=== PATIENT | male | born 1990 | race Caucasian/White ===

== ENCOUNTER 2016-11-07 13:41 | Outpatient (CLI) | payer OTHER | END 2016-11-07 13:42 | disposition home or self-care (01) | DX: G47.30 Sleep apnea, unspecified (principal); G47.10 Hypersomnia, unspecified; G47.8 Other sleep disorders; R06.83 Snoring; G47.21 Circadian rhythm sleep disorder, delayed sleep phase type; G47.00 Insomnia, unspecified ==

== ENCOUNTER 2016-12-01 21:25 | Outpatient (CLI) | payer OTHER | END 2016-12-01 21:26 | disposition home or self-care (01) | DX: G47.30 Sleep apnea, unspecified (principal); G47.10 Hypersomnia, unspecified; G47.8 Other sleep disorders; R06.83 Snoring; G47.21 Circadian rhythm sleep disorder, delayed sleep phase type; G47.00 Insomnia, unspecified ==

== ENCOUNTER 2016-12-26 14:31 | Outpatient (CLI) | payer OTHER | END 2016-12-26 14:32 | disposition home or self-care (01) | DX: G47.30 Sleep apnea, unspecified (principal); R06.83 Snoring; G47.10 Hypersomnia, unspecified; G47.00 Insomnia, unspecified ==

== ENCOUNTER 2016-12-28 08:12 | Emergency (ER) | payer OTHER ==
[2016-12-28] MEDS ORDERED: DEXAMETHASONE 10 MG/ML VIAL PO STA (09:01)
[2016-12-28] MEDS ORDERED: CHERRY SYRUP 10 ML UDC PO ONE (09:01)
[2016-12-28] MEDS ORDERED: DEXAMETHASONE 10 MG/ML VIAL ONE (09:01)
== END 2016-12-28 09:19 | disposition home or self-care (01) ==
DX: E86.0 Dehydration (principal); H66.003 Acute suppurative otitis media without spontaneous rupture of ear drum, bilateral; F32.9 Major depressive disorder, single episode, unspecified
CPT/HCPCS: 99283; A9270

== ENCOUNTER 2020-05-11 02:59 | Outpatient (CLI) | payer OTHER | END 2020-05-11 03:00 | disposition critical access hospital (66) | LOC: EMS 02:59 | PROVIDERS: ATTEND Surgery | DX: N50.819 Testicular pain, unspecified (principal) | CPT/HCPCS: A0425; A0429 ==

== ENCOUNTER 2020-05-11 03:16 | Emergency (ER) | payer OTHER ==
--- NOTE | 2020-05-11 04:07 | ED Physician Documentation ---
PD HPI MALE - Stated complaint Stated Complaint: GROIN PAIN - Chief complaint Chief Complaint: General - History obtained from History obtained from: Patient - History of Present Illness Timing - onset: How many minutes ago (approximately 30 minutes [employer]) Timing - details: Abrupt onset Pain level now: 8 Associated symptoms: Testiclar pain. No: Dysuria, Discharge, Genital sore / lesion, Scrotal swelling, Abdominal pain, Back pain PD HPI MALE CONTRIB FACTORS: Not sexually active Similar symptoms before: Has not had sx before Recently seen: Not recently seen - Additional information Additional information: BIBA. c/o woken from sleep by sudden onset, atraumatic right testicular pain. He is not sexually active. denies h/o similar symptoms. pain is worse with palpation, movement. denies dysuria, discharge. Review of Systems Constitutional: denies: Fever, Chills, Sweats GI: reports: Reviewed and negative : reports: Testicular pain. denies: Dysuria, Frequency, Hematuria, Discharge Skin: denies: Rash, Lesions Musculoskeletal: denies: Back pain PD PAST MEDICAL HISTORY - Past Medical History Past Medical History: Yes Psych: Depression, Post traumatic stress disorder - Past Surgical History Past Surgical History: No - Present Medications Home Medications: Ambulatory Orders Medication Instructions Recorded Confirmed Prazosin HCl 10 mg PO DAILY 12/28/16 05/11/20 Levofloxacin [Levaquin] 500 mg PO DAILY #9 tablet 05/11/20 Oxycodone HCl/Acetaminophen 1 - 2 each PO Q6H PRN #14 tablet 05/11/20 [Percocet 5-325 mg Tablet] Sertraline HCl 100 mg PO DAILY 05/11/20 05/11/20 - Allergies Allergies/Adverse Reactions: Allergies Allergy/AdvReac Type Severity Reaction Status Date / Time No Known Drug Allergies Allergy Verified 12/28/16 08:26 - Social History Does the pt smoke?: No Smoking Status: Never smoker Does the pt drink ETOH?: No - Immunizations Immunizations are current?: Yes PD ED PE NORMAL - Vitals Vital signs reviewed: Yes - General General: Alert and oriented X 3, Well developed/nourished, Other (appears to be in mild painful distress, waxing and waning during H+P) - Abdomen Abdomen: Soft, Non tender - Back Back: No CVA TTP - Derm Derm: Normal color, Warm and dry, No rash PD ED PE EXPANDED - Male Male : Circumcised, Testes descended adalid, Normal lie/cremastaric, Tenderness (right testicle tenderness at inferior pole). No: Discharge Results - Vitals Vitals: Vital Signs - 24 hr 05/11/20 05/11/20 05/11/20 03:15 05:11 07:12 Temperature 36.0 C L Heart Rate 98 82 84 Respiratory 20 18 16 Rate Blood Pressure 164/109 H 155/102 H 144/88 H O2 Saturation 97 97 98 Oxygen O2 Source Room air - Labs Labs: Laboratory Tests 05/11/20 05/11/20 05/11/20 04:35 04:35 07:00 WBC 10.8 RBC 5.39 Hgb 15.9 Hct 45.4 MCV 84.2 MCH 29.5 MCHC 35.0 RDW 13.1 Plt Count 235 MPV 9.6 Neut # (Auto) 7.7 H Lymph # (Auto) 2.2 [place] # (Auto) 0.7 Eos # (Auto) 0.1 Baso # (Auto) 0.1 Absolute Nucleated RBC 0.00 Nucleated RBC % 0.0 Sodium 133 L Potassium 3.3 L Chloride 99 L Carbon Dioxide 24 Anion Gap 10.0 BUN 10 Creatinine 1.1 Estimated GFR (MDRD) 78 L Glucose 92 Calcium 9.5 Urine Color DARK YELLOW Urine Clarity CLEAR Urine pH 6.5 Ur Specific [place] 1.025 Urine Protein TRACE Urine Glucose (UA) NEGATIVE Urine Ketones TRACE Urine Occult Blood NEGATIVE Urine Nitrite NEGATIVE Urine Bilirubin NEGATIVE Urine Urobilinogen 0.2 (NORMAL) Ur Leukocyte Esterase NEGATIVE Ur Microscopic Review NOT INDICATED Urine Culture Comments NOT INDICATED - Rads (name of study) testicle US w doppler Radiology: Prelim report reviewed, See rad report PD MEDICAL DECISION MAKING - ED course Complexity details: reviewed results, re-evaluated patient, considered differential, d/w patient Departure - Departure Disposition: 01 Home, Self Care Clinical Impression: Orchitis Condition: Good Instructions: ED Orchitis Prescriptions: Levofloxacin [Levaquin] 500 mg PO DAILY #9 tablet Oxycodone HCl/Acetaminophen [Percocet 5-325 mg Tablet] 1 - 2 each PO Q6H PRN #14 tablet PRN Reason: pain Discharge Date/Time: 05/11/20 07:12
[2020-05-11] MEDS ORDERED: MORPHINE 2 MG/ML CARPUJECT IVP STA ×2 (04:29→05:52)
[2020-05-11] MEDS ORDERED: KETOROLAC 30 MG/ML VIAL IVP STA (04:29)
[2020-05-11 04:45] LABS: BASOPHILS # (AUTO) 0.1 10^3/uL (0.0-0.1); BASOPHILS % (AUTO) 0.5 %; EOSINOPHILS # (AUTO) 0.1 10^3/uL (0.0-0.7); EOSINOPHILS % (AUTO) 1.2 %; HGB - HEMOGLOBIN 15.9 g/dL (14.0-18.0); LYMPHOCYTES # (AUTO) 2.2 10^3/uL (1.5-3.5); LYMPHOCYTES % (AUTO) 20.1 %; MEAN CORPUSCULAR HEMOGLOBIN 29.5 pg (27.0-31.0); MEAN CORPUSCULAR VOLUME 84.2 fL (80.0-94.0); MEAN PLATELET VOLUME 9.6 fL (7.4-11.4); MONOCYTES # (AUTO) 0.7 10^3/uL (0.0-1.0); NEUTROPHILS # (AUTO) 7.7 10^3/uL (1.5-6.6); NEUTROPHILS % (AUTO) 71.6 %; PLT - PLATELET COUNT 235 10^3/uL (130-450); RED BLOOD COUNT 5.39 10^6/uL (4.70-6.10); RED CELL DISTRIBUTION WIDTH 13.1 % (12.0-15.0); WHITE BLOOD COUNT 10.8 x10^3/uL (4.8-10.8)
[2020-05-11 04:55] LABS: CALCIUM 9.5 mg/dL (8.5-10.3); CREATININE 1.1 mg/dL (0.6-1.2)
[2020-05-11] MEDS ORDERED: oxyCODONE 5 MG TABLET PO STA (06:41)
[2020-05-11] MEDS ORDERED: levoFLOXacin 250 MG TABLET PO STA ×2 (06:41→06:43)
[2020-05-11 07:13] VITALS: BP 144/88
[2020-05-11 07:19] LABS: BILIRUBIN,URINE NEGATIVE (NEGATIVE); GLUCOSE, URINE (UA) NEGATIVE (NEGATIVE); KETONES,URINE (UA) TRACE mg/dL (NEGATIVE); LEUKOCYTE ESTERASE, URINE NEGATIVE (NEGATIVE); NITRITE,URINE NEGATIVE (NEGATIVE); OCCULT BLOOD,URINE NEGATIVE (NEGATIVE); PH,URINE 6.5 PH (5.0-7.5); PROTEIN,URINE TRACE mg/dL (NEGATIVE); UROBILINOGEN,URINE 0.2 (NORMAL) E.U./dL (NORMAL)
[2020-05-11 07:21] LABS: CLARITY,URINE CLEAR (CLEAR)
--- NOTE | 2020-05-11 11:06 | Ultrasound Report ---
PROCEDURE: Testicle w/Doppler INDICATIONS: acute right testicular pain TECHNIQUE: Real-time scanning was performed of the scrotum and testicles, with image documentation. Color and p ulse Doppler interrogation was performed of both testicles. COMPARISON: None. FINDINGS: Right: Testicle is normal in size at 4.8 x 2.2 x 3.4 cm, and homogenous in echotexture. Epididymis is normal in overall size. There is a 1 cm right epididymal head cyst seen that demonstrates echogeni c debris within it. There is also a 5 mm right epididymal cyst seen. There is a small right-sided hyd rocele. Overlying scrotal skin is normal in thickness. Left: Testicle is normal in size at 4.5 x 2.2 x 3.1 cm, and homogeneous in echotexture. Epididymis is normal in overall size and morphology. A small left-sided hydrocele is seen. Overlying scrotal ski n is normal in thickness. Doppler: The right testicle is mildly hyperemic compared to the left. The vascular asymmetry is best demonstrated on image 74. The left testicle demonstrates normal vascularity. No varicocele can be se en on either side. IMPRESSION: Mildly hypervascular right testicle, which is consistent with orchitis. Right epididymal head cysts are seen, including echogenic debris within one of the cysts. Note: No significant discrepancy from the preliminary report. Reviewed by: Bart Okeefe MD on 05/11/2020 10:05 AM [facility] Approved by: Bart Okeefe MD on 05/11/2020 10:05 AM [facility]O Station ID: [id number]
== END 2020-05-11 07:12 | disposition home or self-care (01) ==
LOC: EDUNIT# → ED 03:16
DX: N45.2 Orchitis (principal)
CPT/HCPCS: 36415; 76870; 80048; 81003; 85025; 93975; 96374; 96375; 96376; 99284; A9270; 81001; 87086